=== PATIENT | male | born 1960 | race Caucasian/White ===

== ENCOUNTER 2016-09-02 14:18 | Outpatient (CLI) | payer MEDICAID | END 2016-09-02 14:19 | disposition home or self-care (01) | DX: E11.9 Type 2 diabetes mellitus without complications (principal); E78.1 Pure hyperglyceridemia; E66.9 Obesity, unspecified ==

== ENCOUNTER 2016-10-23 11:14 | Outpatient (CLI) | payer MEDICAID ==
--- NOTE | 2016-10-23 13:47 | Ultrasound Report ---
SCROTAL DUPLEX: 10/23/2016 CLINICAL INDICATION: Hydrocele. COMPARISON: 10/31/2014 TECHNIQUE: Real-time sonographic vascular imaging was performed by the chief dietitian through the scrot um utilizing both color-flow and Doppler spectral analysis. Multiple credit resolution representative static images we re saved for review. FINDINGS: The right testicle measures 5.1 x 3.4 x 2.9 cm, and the left testicle measures 5.6 x 3.4 x 3.0 cm. Both testicles demonstrate normal flow and echotexture. The epididymides are unremarkable. A left hydrocele is present, increased in size from previous. No varicocele or hernia is identifie d. IMPRESSION: INTERVAL INCREASE IN SIZE OF LEFT HYDROCELE. NO INTRATESTICULAR MASS. JOB #: [id number] EXT JOB #:
== END 2016-10-23 11:15 | disposition home or self-care (01) ==
LOC: DI 11:14
PROVIDERS: ATTEND Nurse Practitioner Family
DX: N43.3 Hydrocele, unspecified (principal)
CPT/HCPCS: 76870

== ENCOUNTER 2016-12-30 11:12 | Outpatient (CLI) | payer MEDICAID ==
[2016-12-30 20:10] LABS: HEMOGLOBIN A1C 0.94 g/dL
== END 2016-12-30 11:13 | disposition home or self-care (01) ==
LOC: LAB.S 11:12
PROVIDERS: ATTEND Nurse Practitioner Family
DX: E11.9 Type 2 diabetes mellitus without complications (principal)
CPT/HCPCS: 36415; 83036

== ENCOUNTER 2017-07-22 13:30 | Outpatient (CLI) | payer MEDICAID ==
--- NOTE | 2017-07-22 18:37 | XRAY Report ---
TWO VIEW LEFT KNEE: 07/22/2017 CLINICAL INDICATION: Pain. FINDINGS: Frontal and lateral views of the left knee demonstrate minimal osteoarthritis, with small marginal osteophytes. There is no evidence of acute fracture. No effusion is present. IMPRESSION: MINIMAL OSTEOARTHRITIS. TD: 07/22/2017 18:37
== END 2017-07-22 13:31 | disposition home or self-care (01) ==
LOC: DI.S 13:30
PROVIDERS: ATTEND Nurse Practitioner Family
DX: M17.12 Unilateral primary osteoarthritis, left knee (principal)

== ENCOUNTER 2017-09-08 08:00 | Outpatient (CLI) | payer MEDICAID ==
[2017-09-08 18:48] LABS: HB2 TOTAL 16.5 g/dL; HEMOGLOBIN A1C 1.23 g/dL
[2017-09-08 18:56] LABS: ALBUMIN 4.1 g/dL (3.2-5.5); ALBUMIN/GLOBULIN RATIO 1.4 (1.0-2.2); ALKALINE PHOSPHATASE 68 IU/L (42-121); ALT ALANINE AMINOTRANSFERASE 30 IU/L (10-60); AST ASPARTATE AMINOTRANSFERASE 19 IU/L (10-42); BILIRUBIN,TOTAL 0.8 mg/dL (0.2-1.0); BUN - BLOOD UREA NITROGEN 15 mg/dL (6-20); CARBON DIOXIDE - CO2 26 mmol/L (21-32); CHLORIDE 100 mmol/L (101-111); CHOL/HDL RATIO 5.6 (<5.0); CHOLESTEROL 201 mg/dL; CREATININE 0.6 mg/dL (0.6-1.2); GFR - MDRD 138 (>89); GLUCOSE 251 mg/dL (70-100); HDL CHOLESTEROL 36 mg/dL; LDL CHOLESTEROL,CALCULATED 134 mg/dL; LDL/HDL RATIO 3.7 (<3.6); SODIUM 134 mmol/L (135-145); VLDL CHOLESTEROL 31 mg/dL
== END 2017-09-08 08:01 | disposition home or self-care (01) ==
LOC: LAB.S 08:00
PROVIDERS: ATTEND Nurse Practitioner Family
DX: E11.9 Type 2 diabetes mellitus without complications (principal); I10 Essential (primary) hypertension
CPT/HCPCS: 36415; 80053; 80061; 82043; 83036; 83721; 84443

== ENCOUNTER 2018-07-31 11:13 | Outpatient (CLI) | payer MEDICAID ==
[2018-07-31 20:09] LABS: HB2 TOTAL 15.2 g/dL; HEMOGLOBIN A1C 1.21 g/dL; HEMOGLOBIN A1C % 9.4 % (4.6-6.2)
== END 2018-07-31 11:14 | disposition home or self-care (01) ==
LOC: LAB.F 11:13
PROVIDERS: ATTEND Nurse Practitioner Family
DX: E11.8 Type 2 diabetes mellitus with unspecified complications (principal)
CPT/HCPCS: 36415; 83036

== ENCOUNTER 2018-08-10 09:32 | Outpatient (CLI) | payer MEDICAID ==
[2018-08-10 17:55] LABS: BASOPHILS # (AUTO) 0.1 10^3/uL (0.0-0.1); BASOPHILS % (AUTO) 0.9 %; EOSINOPHILS # (AUTO) 0.2 10^3/uL (0.0-0.7); EOSINOPHILS % (AUTO) 2.1 %; HGB - HEMOGLOBIN 14.6 g/dL (14.0-18.0); LYMPHOCYTES # (AUTO) 1.9 10^3/uL (1.5-3.5); LYMPHOCYTES % (AUTO) 24.4 %; MEAN CORPUSCULAR HEMOGLOBIN 29.3 pg (27.0-31.0); MEAN CORPUSCULAR HGB CONC 33.6 g/dL (32.0-36.0); MEAN CORPUSCULAR VOLUME 87.3 fL (80.0-94.0); MEAN PLATELET VOLUME 8.7 fL (7.4-11.4); MONOCYTES # (AUTO) 0.6 10^3/uL (0.0-1.0); MONOCYTES % (AUTO) 7.5 %; NEUTROPHILS % (AUTO) 65.1 %; PLT - PLATELET COUNT 263 10^3/uL (130-450); RED BLOOD COUNT 4.98 10^6/uL (4.70-6.10); RED CELL DISTRIBUTION WIDTH 14.7 % (12.0-15.0); WHITE BLOOD COUNT 7.6 x10^3/uL (4.8-10.8)
[2018-08-10 18:17] LABS: ALBUMIN 3.9 g/dL (3.2-5.5); ALBUMIN/GLOBULIN RATIO 1.1 (1.0-2.2); ALKALINE PHOSPHATASE 77 IU/L (42-121); ALT ALANINE AMINOTRANSFERASE 32 IU/L (10-60); AST ASPARTATE AMINOTRANSFERASE 24 IU/L (10-42); BILIRUBIN,TOTAL 0.4 mg/dL (0.2-1.0); BUN - BLOOD UREA NITROGEN 12 mg/dL (6-20); CALCIUM 9.2 mg/dL (8.5-10.3); CARBON DIOXIDE - CO2 28 mmol/L (21-32); CHLORIDE 102 mmol/L (101-111); CHOL/HDL RATIO 4.6 (<5.0); CHOLESTEROL 193 mg/dL; CREATININE 0.6 mg/dL (0.6-1.2); GFR - MDRD 138 (>89); GLUCOSE 196 mg/dL (70-100); HDL CHOLESTEROL 42 mg/dL; LDL CHOLESTEROL,CALCULATED 106 mg/dL; LDL/HDL RATIO 2.5 (<3.6); SODIUM 138 mmol/L (135-145); TOTAL PROTEIN 7.3 g/dL (6.7-8.2); VLDL CHOLESTEROL 45 mg/dL
== END 2018-08-10 09:33 | disposition home or self-care (01) ==
LOC: LAB.F 09:32
PROVIDERS: ATTEND Nurse Practitioner Family
DX: I10 Essential (primary) hypertension (principal); E78.1 Pure hyperglyceridemia; E11.8 Type 2 diabetes mellitus with unspecified complications
CPT/HCPCS: 36415; 80053; 80061; 82043; 83721; 84443; 85025

== ENCOUNTER 2018-10-22 10:35 | Outpatient (CLI) | payer MEDICAID | END 2018-10-22 10:36 | disposition home or self-care (01) | LOC: SC 10:35 | PROVIDERS: ATTEND Nurse Practitioner Family | DX: G47.33 Obstructive sleep apnea (adult) (pediatric) (principal); E66.01 Morbid (severe) obesity due to excess calories; Z68.41 Body mass index [BMI] 40.0-44.9, adult | CPT/HCPCS: 99204; 99212 ==

== ENCOUNTER 2019-03-23 13:48 | Outpatient (CLI) | payer MEDICAID ==
[2019-03-23 17:42] LABS: CALCIUM 9.9 mg/dL (8.5-10.3); CREATININE 0.7 mg/dL (0.6-1.2)
[2019-03-23 18:03] LABS: CREATININE,URINE 143.3 mg/dL; MICROALBUM/CREATININE RATIO,UR 281.9 ug/mg (<30.0); MICROALBUMIN,URINE 40.4 mg/dL (0-300.0)
[2019-03-23 18:12] LABS: HB2 TOTAL 15.1 g/dL; HEMOGLOBIN A1C 1.4 g/dL; HEMOGLOBIN A1C % 10.6 % (4.6-6.2)
== END 2019-03-23 13:49 | disposition home or self-care (01) ==
LOC: LAB.S 13:48
PROVIDERS: ATTEND Registered Nurse
DX: E11.65 Type 2 diabetes mellitus with hyperglycemia (principal)
CPT/HCPCS: 36415; 80048; 82043; 82570; 83036

== ENCOUNTER 2020-09-29 10:36 | Outpatient (CLI) | payer MEDICAID ==
[2020-09-29 15:05] LABS: BASOPHILS # (AUTO) 0.1 10^3/uL (0.0-0.1); BASOPHILS % (AUTO) 0.8 %; EOSINOPHILS # (AUTO) 0.2 10^3/uL (0.0-0.7); EOSINOPHILS % (AUTO) 2.7 %; HCT - HEMATOCRIT 43.8 % (42.0-52.0); HGB - HEMOGLOBIN 14.8 g/dL (14.0-18.0); LYMPHOCYTES # (AUTO) 2.6 10^3/uL (1.5-3.5); LYMPHOCYTES % (AUTO) 29.6 %; MEAN CORPUSCULAR HEMOGLOBIN 29.8 pg (27.0-31.0); MEAN CORPUSCULAR HGB CONC 33.8 g/dL (32.0-36.0); MEAN CORPUSCULAR VOLUME 88.3 fL (80.0-94.0); MEAN PLATELET VOLUME 10.8 fL (7.4-11.4); MONOCYTES # (AUTO) 0.6 10^3/uL (0.0-1.0); MONOCYTES % (AUTO) 7.3 %; NEUTROPHILS # (AUTO) 5.1 10^3/uL (1.5-6.6); PLT - PLATELET COUNT 294 10^3/uL (130-450); RED BLOOD COUNT 4.96 10^6/uL (4.70-6.10); WHITE BLOOD COUNT 8.7 x10^3/uL (4.8-10.8)
[2020-09-29 15:40] LABS: ALBUMIN/GLOBULIN RATIO 1.3 (1.0-2.2); ALKALINE PHOSPHATASE 71 IU/L (42-121); ALT ALANINE AMINOTRANSFERASE 26 IU/L (10-60); AST ASPARTATE AMINOTRANSFERASE 14 IU/L (10-42); BILIRUBIN,TOTAL 0.9 mg/dL (0.2-1.0); BUN - BLOOD UREA NITROGEN 20 mg/dL (6-20); CALCIUM 9.2 mg/dL (8.5-10.3); CARBON DIOXIDE - CO2 27 mmol/L (21-32); CHLORIDE 101 mmol/L (101-111); CHOLESTEROL 127 mg/dL; CREATININE 0.6 mg/dL (0.6-1.2); GFR - MDRD 137 (>89); GLUCOSE 113 mg/dL (70-100); HDL CHOLESTEROL 43 mg/dL; LDL CHOLESTEROL,CALCULATED 67 mg/dL; LDL/HDL RATIO 1.6 (<3.6); POTASSIUM 3.8 mmol/L (3.5-5.0); SODIUM 138 mmol/L (135-145); TOTAL PROTEIN 7.2 g/dL (6.7-8.2); TRIGLYCERIDES 84 mg/dL; VLDL CHOLESTEROL 17 mg/dL
[2020-09-29 16:18] LABS: THYROID STIMULATING HORMONE 1.47 uIU/mL (0.34-5.60)
== END 2020-09-29 10:37 | disposition home or self-care (01) ==
LOC: LAB.S 10:36
PROVIDERS: ATTEND Registered Nurse
DX: E11.8 Type 2 diabetes mellitus with unspecified complications (principal); Z12.5 Encounter for screening for malignant neoplasm of prostate; F17.210 Nicotine dependence, cigarettes, uncomplicated; I10 Essential (primary) hypertension; G47.30 Sleep apnea, unspecified
CPT/HCPCS: 36415; 80053; 80061; 83721; 84153; 84443; 85025

== ENCOUNTER 2020-12-07 10:08 | Outpatient (CLI) | payer MEDICAID ==
[2020-12-07 15:09] LABS: CALCIUM 8.7 mg/dL (8.5-10.3); CREATININE 0.8 mg/dL (0.6-1.2); POTASSIUM 3.7 mmol/L (3.5-5.0)
[2020-12-07 15:41] LABS: CREATININE,URINE 100.7 mg/dL; MICROALBUM/CREATININE RATIO,UR 85.4 ug/mg (<30.0); MICROALBUMIN,URINE 8.6 mg/dL (0-300.0)
[2020-12-07 19:54] LABS: ESTIMATED AVERAGE GLUCOSE 163 mg/dL (70-100); HEMOGLOBIN A1c% 7.3 % (4.27-6.07)
== END 2020-12-07 10:09 | disposition home or self-care (01) ==
LOC: LAB.S 10:08
PROVIDERS: ATTEND Registered Nurse
DX: E11.8 Type 2 diabetes mellitus with unspecified complications (principal); I10 Essential (primary) hypertension
CPT/HCPCS: 36415; 80048; 82043; 82570; 83036

== ENCOUNTER 2021-02-12 14:09 | Outpatient (CLI) | payer MEDICAID | END 2021-02-12 14:10 | disposition home or self-care (01) | LOC: COV 14:09 | PROVIDERS: ATTEND Family Medicine | DX: U07.1 COVID-19 (principal) ==

== ENCOUNTER 2022-04-29 12:41 | Outpatient (CLI) | payer MEDICAID ==
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
[2022-04-29 21:12] VITALS: BP 132/80
== END 2022-04-29 12:42 | disposition home or self-care (01) ==
LOC: SC 12:41
PROVIDERS: ATTEND Internal Medicine Pulmonary Disease
DX: G47.33 Obstructive sleep apnea (adult) (pediatric) (principal); E66.01 Morbid (severe) obesity due to excess calories; Z68.41 Body mass index [BMI] 40.0-44.9, adult
CPT/HCPCS: 99202; 99212

== ENCOUNTER 2022-12-20 12:16 | Outpatient (CLI) | payer MEDICAID ==
[2022-12-20 14:50] LABS: BASOPHILS # (AUTO) 0.1 10^3/uL (0.0-0.1); BASOPHILS % (AUTO) 0.9 %; EOSINOPHILS # (AUTO) 0.2 10^3/uL (0.0-0.7); EOSINOPHILS % (AUTO) 2.3 %; HCT - HEMATOCRIT 45.4 % (42.0-52.0); HGB - HEMOGLOBIN 14.9 g/dL (14.0-18.0); MEAN CORPUSCULAR HEMOGLOBIN 30.2 pg (27.0-31.0); MEAN CORPUSCULAR HGB CONC 32.8 g/dL (32.0-36.0); MEAN CORPUSCULAR VOLUME 91.9 fL (80.0-94.0); MONOCYTES # (AUTO) 0.5 10^3/uL (0.0-1.0); MONOCYTES % (AUTO) 6.3 %; NEUTROPHILS # (AUTO) 5.1 10^3/uL (1.5-6.6); NEUTROPHILS % (AUTO) 65.1 %; PLT - PLATELET COUNT 261 10^3/uL (130-450); RED BLOOD COUNT 4.94 10^6/uL (4.70-6.10); RED CELL DISTRIBUTION WIDTH 14.1 % (12.0-15.0); WHITE BLOOD COUNT 7.8 x10^3/uL (4.8-10.8)
[2022-12-20 15:25] LABS: ALBUMIN 4.2 g/dL (3.2-5.5); ALBUMIN/GLOBULIN RATIO 1.7 (1.0-2.2); ALKALINE PHOSPHATASE 68 IU/L (42-121); ALT ALANINE AMINOTRANSFERASE 35 IU/L (10-60); AST ASPARTATE AMINOTRANSFERASE 15 IU/L (10-42); BILIRUBIN,TOTAL 0.5 mg/dL (0.2-1.0); BUN - BLOOD UREA NITROGEN 21 mg/dL (6-20); CALCIUM 9.6 mg/dL (8.5-10.3); CARBON DIOXIDE - CO2 27 mmol/L (21-32); CHLORIDE 107 mmol/L (101-111); CHOL/HDL RATIO 2.9 (<5.0); CHOLESTEROL 110 mg/dL; CREATININE 0.8 mg/dL (0.6-1.3); GFR - MDRD 98 (>89); GLUCOSE 139 mg/dL (74-104); HDL CHOLESTEROL 38 mg/dL; LDL CHOLESTEROL,CALCULATED 39 mg/dL; POTASSIUM 3.7 mmol/L (3.5-4.5); SODIUM 139 mmol/L (135-145); TOTAL PROTEIN 6.7 g/dL (6.4-8.9); TRIGLYCERIDES 164 mg/dL (48-352); VLDL CHOLESTEROL 33 mg/dL
[2022-12-20 15:26] LABS: CREATININE,URINE 117.2 mg/dL; MICROALBUM/CREATININE RATIO,UR 57.2 ug/mg (<30.0); MICROALBUMIN,URINE 6.7 mg/dL
[2022-12-20 15:42] LABS: ESTIMATED AVERAGE GLUCOSE 154 mg/dL (70-100)
== END 2022-12-20 12:17 | disposition home or self-care (01) ==
LOC: LAB.S 12:16
PROVIDERS: ATTEND Registered Nurse
DX: E78.1 Pure hyperglyceridemia (principal); Z79.899 Other long term (current) drug therapy; Z12.5 Encounter for screening for malignant neoplasm of prostate; E11.8 Type 2 diabetes mellitus with unspecified complications
CPT/HCPCS: 36415; 80053; 80061; 82043; 82570; 83036; 83721; 84153; 85025

== ENCOUNTER 2023-03-31 07:24 | Day surgery (SDC) | payer MEDICAID ==
[2023-03-31] MEDS ORDERED: BACITRACIN ZINC OINT 1 PACKET TOP ONE ×2 (07:29→08:23)
[2023-03-31] MEDS ORDERED: BUPIVACAINE 0.5%-EPI 1:200000 PF 30 ML VIAL ONE (07:30)
[2023-03-31] MEDS ORDERED: LIDOCAINE-MPF 1% 30 ML VIAL ONE ×2 (07:30→07:31)
[2023-03-31] MEDS ORDERED: LACTATED RINGERS 1,000 ML IV ONE (07:59)
[2023-03-31] MEDS ORDERED: MORPHINE 2 MG/ML CARPUJECT IVP PRN (08:03)
[2023-03-31] MEDS ORDERED: ATROPINE ABBOJECT 1 MG/10 ML SYRINGE IVP PRN (08:03)
[2023-03-31] MEDS ORDERED: fentaNYL 100 MCG/2 ML VIAL IVP PRN (08:03)
[2023-03-31] MEDS ORDERED: HYDROmorphone 0.5 MG/0.5 ML SYRINGE IVP PRN (08:03)
[2023-03-31] MEDS ORDERED: ePHEDrine 50 MG/ML VIAL IVP PRN (08:03)
[2023-03-31] MEDS ORDERED: NALOXONE 0.4 MG/ML VIAL IVP PRN (08:03)
[2023-03-31] MEDS ORDERED: ONDANSETRON 4 MG/2 ML VIAL IVP PRN ×2 (08:03→09:23)
[2023-03-31] MEDS ORDERED: METOCLOPRAMIDE 10 MG/2 ML VIAL IVP PRN (08:03)
--- NOTE | 2023-03-31 08:03 | ANESTHESIA ---
Pre-Anesthesia VS, & Labs - Diagnosis spermatocele - Procedure spermatocelectomy Vital Signs: Temp Pulse Resp BP Pulse Ox O2 Flow Rate 36.3 C L 100 12 140/82 H 96 03/31/23 07:44 03/31/23 07:44 03/31/23 07:44 03/31/23 07:44 03/31/23 07:44 Height: 6 ft 2 in Weight (kg): 152 kg Body Mass Index: 43.0 BMI Classification: Morbidly Obese - NPO >8 hours Home Medications and Allergies Home Medications: Ambulatory Orders Amlodipine Besylate [Norvasc] 10 mg PO DAILY 03/25/23 Atorvastatin Calcium 40 mg PO QPM 03/25/23 Dapagliflozin Propanediol [Farxiga] 10 mg PO QDBREAKFAST 03/25/[address] [Voltaren] 75 mg PO BIDWM 03/25/23 Glimepiride [Amaryl] 4 mg PO BID 03/25/23 Liraglutide [Victoza 2-Adam] 0.6 - 1.8 mg SQ DAILY 03/25/23 Losartan Potassium 100 mg PO DAILY 03/25/23 hydroCHLOROthiazide [Hydrodiuril] 25 mg PO DAILY 03/25/23 Active Medications Cefazolin Sodium 3 gm/ Sodium (Chloride) 50 mls @ 100 mls/hr IV ONCE ONE Stop: 03/31/23 08:59 Metformin HCl 1,000 mg PO BID 10/31/14 Amlodipine Besylate [Norvasc] 10 mg PO DAILY 03/25/23 Atorvastatin Calcium 40 mg PO QPM 03/25/23 Dapagliflozin Propanediol [Farxiga] 10 mg PO QDBREAKFAST 03/25/[address] [Voltaren] 75 mg PO BIDWM 03/25/23 Glimepiride [Amaryl] 4 mg PO BID 03/25/23 Liraglutide [Victoza 2-Adam] 0.6 - 1.8 mg SQ DAILY 03/25/23 Losartan Potassium 100 mg PO DAILY 03/25/23 hydroCHLOROthiazide [Hydrodiuril] 25 mg PO DAILY 03/25/23 Allergies/Adverse Reactions: Allergies Allergy/AdvReac Type Severity Reaction Status Date / Time No Known Drug Allergies Allergy Verified 02/18/23 12:28 Anes History & Medical History - Anesthetic History Anesthesia Complications: reports: No previous complications Family history of Anesthesia Complications: Denies Family history of Malignant Hyperthermia: Denies - Medical History Cardiovascular: reports: Hypertension, High cholesterol Pulmonary: reports: Sleep apnea, CPAP use Gastrointestinal: reports: None Urinary: reports: Kidney stones, Other Musculoskeletal: reports: None Endocrine/Autoimmune: reports: Type 2 diabetes Skin: reports: None Smoking Status: Current some day smoker Psychosocial: reports: Cannabis History of Cancer?: No Exam General: Alert, Oriented x3, Cooperative Dental: WNL Mouth Opening: Greater than 4 Fingerbreadths Neck Mobility: Normal Mallampati classification: II Thyromental Distance: 4-6 cm Respiratory: Lungs clear Cardiovascular: Regular rate Plan Anesthesia Type: General Consent for Procedure(s) Verified and Reviewed: Yes Code Status: Attempt Resuscitation ASA classification: 3-Severe systemic disease Is this case an emergency?: No
[2023-03-31] MEDS ORDERED: BUPIVACAINE 0.25% PF 30 ML VIAL SUBQ ONE ×2 (08:23)
[2023-03-31] MEDS ORDERED: LACTATED RINGERS 1,000 ML IV SCH (09:00)
[2023-03-31] MEDS ORDERED: fentaNYL 100 MCG/2 ML VIAL ONE ×2 (09:02→09:43)
[2023-03-31] MEDS ORDERED: MIDAZOLAM 2 MG/2 ML VIAL ONE (09:02)
[2023-03-31] MEDS ORDERED: PROPOFOL 200 MG/20 ML VIAL IVP ONE (09:03)
[2023-03-31] MEDS ORDERED: LACTATED RINGERS 300 ML IV ONE (09:17)
[2023-03-31] MEDS ORDERED: HYDROcod/ACETAM 10 MG/325 MG TABLET PO PRN (09:23)
[2023-03-31] MEDS ORDERED: DEXAMETHASONE 4 MG/ML VIAL ONE (09:34)
[2023-03-31] MEDS ORDERED: ONDANSETRON 4 MG/2 ML VIAL ONE (09:34)
--- NOTE | 2023-03-31 09:38 | Discharge Plan ---
Discharge Plan Problem Reviewed?: Yes Disposition: Home, Self Care Condition: Good Prescriptions: Docusate Sodium 100Mg Capsule [Colace 100Mg Capsule] 100 mg PO DAILY #10 cap cephALEXin [Keflex] 500 mg PO Q6H #28 cap HYDROcod/ACETAM 5/325 [Dovray 5/325] 1 tab PO Q4H PRN #12 tablet PRN Reason: Pain Diet: Diabetic Activity Restrictions: Additional Comments (no heavy lifting >8lbs for 2 weeks) Shower Restrictions: Yes (ok to shower tomorrow. No bathing until one week after drain removed) Driving Restrictions: No Instruction Topics: Hydrocelectomy Surg Additional Instructions or Follow Up instructions: You have a drain in place. This will have bloody or clear/yellow fluid come from it. This is normal. Discard soiled gauze as needed. No Smoking: If you smoke, Please STOP! Call for help. Follow-up with: Clarisa Marti ARNP [Primary Care Provider] - Edward Velez MD [Provider Admit Priv/Credential] -
--- NOTE | 2023-03-31 09:45 | OPERATIVE REPORT ---
Operative Report - General Procedure Date: 03/31/23 Planned Procedure: Left spermatocelectomy Pre-Op Diagnosis: left spermatocele Procedure Performed: Left hydrocelectomy Post Op Diagnosis: Left hydrocele - Procedure Note Primary Surgeon: Agustin Anesthesia Provider: ALEX Anesthesia Technique: General LMA Pathology: left hydrocele sac Estimated Blood Loss (mL): 10 Drain/Tube Type: [place] (left dependent scrotum) Findings: Large left hydrocele, at least 500cc drained Complications: none - Other Other Information/Narrative: After informed consent was obtained the patient was brought to the OR and laid in the supine position. At that point time the patient was anesthetized per anesthesia protocols. He was prepped and draped in the usual sterile fashion. A timeout was performed reconfirming the patient, procedure and laterality. He had a large swelling of his left hemiscrotum. 0.75% bupivacaine was used as local. This was instilled into the scrotum in the midline raphae. Using electrocautery this was cut down to open the skin. The dark toes on the left was then opened using electrocautery. Using blunt dissection we were able to get around his tunica vaginalis. Initially we thought that this was a large spermatocele and so the entire tunica vaginalis was delivered through his scrotal incision. At that point we could see that th is appeared to be actually a large hydrocele. A stab incision was used to open up the hydrocele sac and at least 500 cc of straw-colored effluent was removed. We then delivered the testicle through this incision and we could see that there was no spermatocele and there was a normal epididymis. The redundant hydrocele sac was excised. The edges were cauterized for hemostasis. The edges were then ran with locking 3-0 Vicryl suture. The hemiscrotum was irrigated copiously with saline. There was no significant oozing or bleeding. A spermatic cord block was given. A stab incision was made in the dependent left hemiscrotum and a [place] drain was placed through this. This was sutured in place using a 3-0 nylon suture. The dark toes was closed using a running 3-0 Vicryl suture. The skin was closed using a running 3-0 chromic suture and then covered with skin glue. Fluffs and a scrotal support were placed. This concluded the procedure the patient was reversed from anesthesia and brought to the PACU without further incident. All surgical counts were correct. The patient will have the drain in place until later this week or early next week.
[2023-03-31] MEDS ORDERED: HYDROcod/ACETAM 10 MG/325 MG TABLET ONE (10:12)
[2023-03-31 10:18] VITALS: O2SAT 94
[2023-03-31 10:37] VITALS: BP 132/98
--- NOTE | 2023-03-31 12:16 | ANESTHESIA POST OP EVALUATION ---
Anesthesia Post Eval - Post Anesthesia Eval Vitals: Last Vital Signs Temp 36.5 C 03/31/23 10:26 Pulse 126 H 03/31/23 10:26 Resp 18 03/31/23 10:26 BP 132/98 H 03/31/23 10:26 Pulse Ox 94 03/31/23 10:26 O2 Flow Rate CV Function Including HR & BP: Stable Pain Control: Satisfactory Nausea & Vomiting: Negative Mental Status: Baseline Respiratory Status: Airway Patent Hydration Status: Satisfactory Anesthesia Complications: None
== END 2023-03-31 07:25 | disposition home or self-care (01) ==
LOC: SDS 07:24
PROVIDERS: ATTEND Urology
PROC: 0VB Male Reproductive System, Excision (ICD-10-PCS; principal; 2023-03-31 08:30)
DX: N43.3 Hydrocele, unspecified (principal); E11.9 Type 2 diabetes mellitus without complications; I10 Essential (primary) hypertension; G47.30 Sleep apnea, unspecified; E66.01 Morbid (severe) obesity due to excess calories; Z68.41 Body mass index [BMI] 40.0-44.9, adult; Z79.84 Long term (current) use of oral hypoglycemic drugs
CPT/HCPCS: 55040; A9270; J7040; J7120

== ENCOUNTER 2023-07-23 15:35 | Outpatient (CLI) | payer MEDICAID ==
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
== END 2023-07-23 15:36 | disposition home or self-care (01) ==
LOC: SC 15:35
PROVIDERS: ATTEND Nurse Practitioner Family
DX: G47.33 Obstructive sleep apnea (adult) (pediatric) (principal); E66.01 Morbid (severe) obesity due to excess calories; Z68.42 Body mass index [BMI] 45.0-49.9, adult

== ENCOUNTER 2023-07-25 07:33 | Day surgery (SDC) | payer MEDICAID ==
--- NOTE | 2023-07-25 07:11 | ANESTHESIA ---
Pre-Anesthesia VS, & Labs - Diagnosis screening - Procedure colonoscopy Height: 6 ft 2 in - NPO >8 hours Last Fluid Intake: am prep - Lab Results Lab results reviewed: Yes Home Medications and Allergies Metformin HCl 1,000 mg PO BID 10/31/14 Amlodipine Besylate [Norvasc] 10 mg PO DAILY 03/25/23 Atorvastatin Calcium 40 mg PO QPM 03/25/23 Dapagliflozin Propanediol [Farxiga] 10 mg PO QDBREAKFAST 03/25/[address] [Voltaren] 75 mg PO BIDWM 03/25/23 Glimepiride [Amaryl] 4 mg PO BID 03/25/23 Liraglutide [Victoza 2-Adam] 0.6 - 1.8 mg SQ DAILY 03/25/23 Losartan Potassium 100 mg PO DAILY 03/25/23 hydroCHLOROthiazide [Hydrodiuril] 25 mg PO DAILY 03/25/23 Allergies/Adverse Reactions: Allergies Allergy/AdvReac Type Severity Reaction Status Date / Time No Known Drug Allergies Allergy Verified 07/23/23 14:51 Anes History & Medical History - Anesthetic History Anesthesia Complications: reports: No previous complications Family history of Anesthesia Complications: Denies Family history of Malignant Hyperthermia: Denies - Medical History Cardiovascular: reports: Hypertension, High cholesterol Pulmonary: reports: Sleep apnea, CPAP use Gastrointestinal: reports: None Urinary: reports: Kidney stones, Other Musculoskeletal: reports: None Endocrine/Autoimmune: reports: Type 2 diabetes Skin: reports: None Smoking Status: Current some day smoker - Surgical History Urologic: reports: Testicular surgery Exam General: Oriented x3, Cooperative Dental: WNL Mouth Openin Fingerbreadth Neck Mobility: Normal Mallampati classification: II Respiratory: Lungs clear, Normal breath sounds, No respiratory distress Cardiovascular: Regular rate Neurological: Normal speech Mental/Cognitive Status: Alert/Oriented X3 Cognitive Status: Within normal limits Plan Anesthesia Type: Total IV Consent for Procedure(s) Verified and Reviewed: Yes Code Status: Attempt Resuscitation ASA classification: 3-Severe systemic disease Is this case an emergency?: No
[~2023-07-25 07:33] MED LIST: PROPOFOL 500 MG/50 ML 500 MG/50 ML VIAL ONE
[2023-07-25] MEDS: LACTATED RINGERS 1,000 ML IV ONE ×2 (07:35→09:26)
[2023-07-25] MEDS ORDERED: ePHEDrine 50 MG/ML VIAL IVP ONE (07:51)
[2023-07-25] MEDS ORDERED: PROPOFOL 200 MG/20 ML VIAL IVP ONE (07:59)
[2023-07-25] MEDS ORDERED: MIDAZOLAM 2 MG/2 ML VIAL ONE (08:34)
--- NOTE | 2023-07-25 08:44 | HISTORY & PHYSICAL EXAMINATION ---
Chief Complaint - Chief Complaint Chief Complaint: here for colonscopy History of Present Illness - History Obtained From Records Reviewed: yes History obtained from: pt Exam Limitations: none - History of Present Illness HPI Comment/Other: here for colonoscopy for screening. no gi problems History - Past Medical History Cardiovascular: reports: Hypertension, High cholesterol Respiratory: reports: Sleep apnea, CPAP use Endocrine/Autoimmune: reports: Type 2 diabetes GI: reports: None : reports: Kidney stones, Other HEENT: reports: Chronic vision loss Psych: reports: None Musculoskeletal: reports: None Derm: reports: None MRSA Hx?: No - POLST Patient has POLST: No Meds/Allgy - Home Medications Home Medications: Ambulatory Orders Medication Instructions Recorded Confirmed Metformin HCl 1,000 mg PO BID 10/31/14 07/25/23 Amlodipine Besylate [Norvasc] 10 mg PO DAILY 03/25/23 07/25/23 Atorvastatin Calcium 40 mg PO QPM 03/25/23 07/25/23 Dapagliflozin Propanediol [Farxiga] 10 mg PO QDBREAKFAST 03/25/23 07/25/[address] [Voltaren] 75 mg PO BIDWM 03/25/23 07/25/23 Glimepiride [Amaryl] 4 mg PO BID 03/25/23 07/25/23 Liraglutide [Victoza 2-Adam] 0.6 - 1.8 mg SQ DAILY 03/25/23 07/25/23 Losartan Potassium 100 mg PO DAILY 03/25/23 07/25/23 hydroCHLOROthiazide [Hydrodiuril] 25 mg PO DAILY 03/25/23 07/25/23 - Allergies Allergies/Adverse Reactions: Allergies Allergy/AdvReac Type Severity Reaction Status Date / Time No Known Drug Allergies Allergy Verified 07/23/23 14:51 Review of Systems - Other Findings Other Findings: 10 pt ros as above otherwise unremarkable Exam - Vital Signs Vital Signs: Vital Signs x48h Temp Pulse Resp BP Pulse Ox 07/25/23 07:35 36.3 C L 88 23 137/98 H 98 - Physical Exam General Appearance: positive: Alert, Mild distress Eyes Bilateral: positive: PERRL, EOMI ENT: positive: No signs of dehydration Neck: positive: No JVD Respiratory: positive: No respiratory distress Cardiovascular: positive: Regular rate & rhythm Abdomen: positive: Non-tender, No distention Neurologic/Psychiatric: positive: Oriented x3 Conclusion/Plan - Problem List (1) Colon cancer screening Conclusion/Plan: plan colonoscopy. parq held and consent obtained - Lab Results Lab results reviewed: Yes
[2023-07-25] MEDS ORDERED: LIDOCAINE-MPF 2% 5 ML VIAL ONE (08:56)
[2023-07-25] MEDS ORDERED: METOPROLOL 5 MG/5 ML VIAL IVP ONE (09:08)
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
[2023-07-25 10:11] VITALS: BP 120/88; O2SAT 96
== END 2023-07-25 07:34 | disposition home or self-care (01) ==
LOC: SDS 07:33
PROVIDERS: ATTEND Surgery
PROC: 0DBN8ZZ Excision of Sigmoid Colon, Via Natural or Artificial Opening Endoscopic (ICD-10-PCS; 2023-07-25)
PROC: 0DBP8ZZ Excision of Rectum, Via Natural or Artificial Opening Endoscopic (ICD-10-PCS; 2023-07-25)
PROC: 0DBK8ZZ Excision of Ascending Colon, Via Natural or Artificial Opening Endoscopic (ICD-10-PCS; principal; 2023-07-25 08:45)
DX: Z12.11 Encounter for screening for malignant neoplasm of colon (principal); D12.2 Benign neoplasm of ascending colon; K62.1 Rectal polyp; K63.5 Polyp of colon; E11.9 Type 2 diabetes mellitus without complications; I48.91 Unspecified atrial fibrillation; I10 Essential (primary) hypertension; Z79.85 Long-term (current) use of injectable non-insulin antidiabetic drugs; Z79.84 Long term (current) use of oral hypoglycemic drugs; F17.200 Nicotine dependence, unspecified, uncomplicated; G47.30 Sleep apnea, unspecified
CPT/HCPCS: 36415; 45380; 71045; 80053; 83690; 83735; 85025; 93005; 96365; 99284; A9270; J7120; 84484

== ENCOUNTER 2023-07-25 10:22 | Emergency (ER) | payer MEDICAID ==
--- NOTE | 2023-07-25 10:43 | ED Physician Documentation ---
PD HPI DYSPNEA - Stated complaint Stated Complaint: AFIB - Chief complaint Chief Complaint: Cardiac - History obtained from History obtained from: Patient - History of Present Illness Timing - onset: Unknown (Patient had coonoscopy today here and at end of the procedure was noted to go into fast heart rate of about 150-160, appearing irregular. Given Metoprolol IV with slowing of heart rate. Initial rhythm strips in retrospect in preop were apparently atrial fib rate controlled. Pt wihtout chest pain.) Timing - details: Waxing and waning (initial heart rate into preop was good 80s. It was at end of the colonoscopy that HR abruptly went to 160s. BP remained good.) Inciting event(s): Other (patient preppped for colonoscopy the past few days.) Associated symptoms: No: Fever, Cough, Wheezing, Chest pain / discomfort Similar symptoms before: Has not had sx before (patient is not aware of irregula r heart rate in the past. Does not feel fast heart rate nor palpatations recently.) Review of Systems Constitutional: denies: Fever (not currently. Pt states had URI/COVID several weeks ago without continued symptoms.), Chills Nose: denies: Rhinorrhea / runny nose, Congestion Cardiac: denies: Chest pain / pressure, Palpitations, Pedal edema Respiratory: denies: Dyspnea, Cough GI: denies: Vomiting PD PAST MEDICAL HISTORY - Past Medical History Cardiovascular: Hypertension, High cholesterol Respiratory: Sleep apnea, CPAP use Endocrine/Autoimmune: Type 2 diabetes GI: None : Kidney stones, Other HEENT: Chronic vision loss Psych: None Musculoskeletal: None Derm: None - Past Surgical History Past Surgical History: No - Present Medications Home Medications: Ambulatory Orders Medication Instructions Recorded Confirmed Metformin HCl 1,000 mg PO BID 10/31/14 07/25/23 Amlodipine Besylate [Norvasc] 10 mg PO DAILY 03/25/23 07/25/23 Atorvastatin Calcium 40 mg PO QPM 03/25/23 07/25/23 Dapagliflozin Propanediol [Farxiga] 10 mg PO QDBREAKFAST 03/25/23 07/25/[address] [Voltaren] 75 mg PO BIDWM 03/25/23 07/25/23 Glimepiride [Amaryl] 4 mg PO BID 03/25/23 07/25/23 Liraglutide [Victoza 2-Adam] 0.6 - 1.8 mg SQ DAILY 03/25/23 07/25/23 Losartan Potassium 100 mg PO DAILY 03/25/23 07/25/23 hydroCHLOROthiazide [Hydrodiuril] 25 mg PO DAILY 03/25/23 07/25/23 Magnesium Oxide [Mag Ox] 400 mg PO DAILY #30 tablet 07/25/23 Metoprolol Tartrate [Lopressor] 25 mg PO DAILY #30 tablet 07/25/23 Potassium Chloride 10 meq PO DAILY #30 tab 07/25/23 - Allergies Allergies/Adverse Reactions: Allergies Allergy/AdvReac Type Severity Reaction Status Date / Time crab innards Allergy Edema Uncoded 07/25/23 10:40 shellfish innards Allergy Edema Uncoded 07/25/23 10:40 - Social History Does the pt smoke?: Yes Smoking Status: Current every day smoker Does the pt drink ETOH?: Yes Does the pt have substance abuse?: No - POLST Patient has POLST: No PD ED PE NORMAL - Vitals Vital signs reviewed: Yes - General General: Alert and oriented X 3, No acute distress, Well developed/nourished - Neck Neck: Supple, no meningeal sign, No adenopathy - Cardiac Cardiac: No murmur, Other (irregular heart rhythm with rate in 70-80s.) - Respiratory Respiratory: No respiratory distress, Clear bilaterally - Abdomen Abdomen: Soft, Non tender - Derm Derm: Normal color, Warm and dry - Extremities Extremities: No tenderness to palpate, Normal ROM s pain, No edema, No calf tenderness / cord - Neuro Neuro: Alert and oriented X 3, No motor deficit, Normal speech Results - Vitals Vitals: Vital Signs - 24 hr 07/25/23 07/25/23 10:33 12:39 Temperature 36.1 C L Heart Rate 71 75 Respiratory 15 16 Rate Blood Pressure 151/107 H 141/84 H O2 Saturation 98 96 Oxygen O2 Source Room air - EKG (time done) 10:23 EKG releavant findings:: EKG personally interpreted by author of this note. Relevant findings are: Rate: Rate (enter#) (71) Rhythm: Atrial fibrillation [place]: Normal Intervals: Wide QRS Ischemia: Normal ST segments. No: ST elevation c/w ischemia, ST depression Compare to prior EKG: Old EKG unavailable - Labs Labs: Laboratory Tests 07/25/23 07/25/23 10:51 10:51 WBC 8.4 RBC 5.45 Hgb 15.7 Hct 48.4 MCV 88.8 MCH 28.8 MCHC 32.4 RDW 14.1 Plt Count 285 MPV 10.6 Neut # (Auto) 6.0 Lymph # (Auto) 1.6 [place] # (Auto) 0.5 Eos # (Auto) 0.1 Baso # (Auto) 0.1 Absolute Nucleated RBC 0.00 Nucleated RBC % 0.0 Sodium 138 Potassium 3.7 Chloride 104 Carbon Dioxide 28 Anion Gap 6.0 BUN 13 Creatinine 0.7 Estimated GFR (MDRD) 114 Glucose 249 H Calcium 9.1 Magnesium 1.5 L Total Bilirubin 0.5 AST 16 ALT 30 Alkaline Phosphatase 79 Total Protein 6.3 L Albumin 3.6 Globulin 2.7 Albumin/Globulin Ratio 1.3 Lipase 16 - Rads (name of study) chest xray Relevant Findings:: Prelim report reviewed, EMP independent interpretation of test (mild interstitial edema) PD Medical Decision Making - ED course Complexity details: considered differential (review of rhythm strips for preop today showed atrial fib. Unknown duration of the rhythm. Did go to fast rate during colonscopy but was not new onset at that time per se. Given unknown duration/onset, the goal right now is rate control, which was gotten with dose metoprolol. He may have paroxysm.), d/w patient ED course: his atrial fib may be more recent fro hydration and lytes off with current colonoscpy prep. However, not known. Could be some viral myopathy from recent URI. Does not have other symptoms to suggest severe CHF. He might want to be on DOAC, depends if this is isolated episode related to current conditions Will want rhythm check in next few days follow up. Presume will want to have ECHO and Ziopatch, that can be done outpt, to see if any atril fib in the background that he does not feel. For now, can defer starting DOAC until more clear about it. He is stable for discharge. Departure - Departure Disposition: 01 Home, Self Care Clinical Impression: Atrial fibrillation Qualifiers: Atrial fibrillation type: unspecified Qualified Code(s): I48.91 - Unspecified atrial fibrillation Condition: Stable Record reviewed to determine appropriate education?: Yes Instructions: Atrial Fibrillation Dc Follow-Up: Clarisa Marti ARNP [Primary Care Provider] - Prescriptions: Metoprolol Tartrate [Lopressor] 25 mg PO DAILY #30 tablet Magnesium Oxide [Mag Ox] 400 mg PO DAILY #30 tablet Potassium Chloride 10 meq PO DAILY #30 tab Comments: You are in atrial fibrillation today and your heart rate did go past/[id number] during the colonoscopy. It seems to be in a better rate now after a dose of a medication called metoprolol. I would suggest continuing with the metoprolol at a low dose of 25 mg daily at least until follow-up with your primary care next week. On blood testing your electrolytes of potassium and magnesium were slightly low so I wrote supplements for these. Take them daily for at least the next week or 2. Stay well-hydrated otherwise and continue your other usual medicines. I did review your other medicines from your med list and there would not be any interactions with the metoprolol. This may be a 1 off episode related to prepping for the colonoscopy and hydration level and electrolyte shifts. It is not clear how long it had been that way prior to your scope today. I would suggest a baby aspirin daily. With your follow-up appointment next week with your primary care, they will want to do an EKG and see your rhythm. They likely will want to set you up with a wearable heart monitor that records your rhythm for 1 to 2 weeks to see if there is recurring episodes of atrial fibrillation in the background that you are not aware of. If you are still in A-fib next week, they will need to decide different course of action. I am inclined to think most likely your rhythm will convert to normal in the next couple of days. I sent your prescription to [facility] in [place]. Forms: PCP List Discharge Date/Time: 07/25/23 13:16
--- NOTE | 2023-07-25 11:01 | XRAY Report ---
PROCEDURE: Chest 1V INDICATIONS: Chest pain TECHNIQUE: One view of the chest was acquired. COMPARISON: 08/16/2015. FINDINGS: Surgical changes and devices: None. Lungs and pleura: No pleural effusions or pneumothorax. Mild interstitial pulmonary edema. Mediastinum: Mediastinal contours appear normal. Heart size is normal. Bones and chest wall: No suspicious bony lesions. Overlying soft tissues appear unremarkable. IMPRESSION: Mild interstitial pulmonary edema. Reviewed by: Ignacio Julien MD on 07/25/2023 11:00 AM [facility] Approved by: Ignacio Julien MD on 07/25/2023 11:00 AM PST Station ID: [id number]
[2023-07-25 11:03] LABS: BASOPHILS # (AUTO) 0.1 10^3/uL (0.0-0.1); BASOPHILS % (AUTO) 0.7 %; EOSINOPHILS # (AUTO) 0.1 10^3/uL (0.0-0.7); EOSINOPHILS % (AUTO) 1.2 %; HCT - HEMATOCRIT 48.4 % (42.0-52.0); HGB - HEMOGLOBIN 15.7 g/dL (14.0-18.0); LYMPHOCYTES # (AUTO) 1.6 10^3/uL (1.5-3.5); LYMPHOCYTES % (AUTO) 19.6 %; MEAN CORPUSCULAR HEMOGLOBIN 28.8 pg (27.0-31.0); MEAN CORPUSCULAR HGB CONC 32.4 g/dL (32.0-36.0); MEAN CORPUSCULAR VOLUME 88.8 fL (80.0-94.0); MEAN PLATELET VOLUME 10.6 fL (7.4-11.4); MONOCYTES # (AUTO) 0.5 10^3/uL (0.0-1.0); MONOCYTES % (AUTO) 5.6 %; NEUTROPHILS % (AUTO) 72.2 %; PLT - PLATELET COUNT 285 10^3/uL (130-450); RED BLOOD COUNT 5.45 10^6/uL (4.70-6.10); RED CELL DISTRIBUTION WIDTH 14.1 % (12.0-15.0); WHITE BLOOD COUNT 8.4 x10^3/uL (4.8-10.8)
[2023-07-25 11:19] LABS: ALBUMIN 3.6 g/dL (3.2-5.5); ALBUMIN/GLOBULIN RATIO 1.3 (1.0-2.2); BILIRUBIN,TOTAL 0.5 mg/dL (0.2-1.0); CALCIUM 9.1 mg/dL (8.5-10.3); CREATININE 0.7 mg/dL (0.6-1.3); MAGNESIUM 1.5 mg/dL (1.7-2.3); POTASSIUM 3.7 mmol/L (3.5-4.5); TOTAL PROTEIN 6.3 g/dL (6.4-8.9)
[2023-07-25] MEDS: METOPROLOL TARTRATE 25 MG TABLET PO STA (12:14)
[2023-07-25] MEDS: POTASSIUM BICARB 25 MEQ TABLET PO STA (12:14)
[2023-07-25] MEDS: SODIUM CHLORIDE 0.9% 500 ML IV STA (12:17)
[2023-07-25] MEDS: MAGNESIUM SULFATE 2 GRAM 2 GM/50 ML BAG IV ONE (12:18)
[2023-07-25 12:47] VITALS: BP 141/84; O2SAT 96
== END 2023-07-25 13:16 | disposition home or self-care (01) ==
LOC: ED 10:22
DX: I48.91 Unspecified atrial fibrillation (principal); E11.9 Type 2 diabetes mellitus without complications; Z79.85 Long-term (current) use of injectable non-insulin antidiabetic drugs; Z79.84 Long term (current) use of oral hypoglycemic drugs; F17.200 Nicotine dependence, unspecified, uncomplicated
CPT/HCPCS: 36415; 80053; 83690; 83735; 84484; 85025; 93005

== ENCOUNTER 2023-07-31 09:26 | Outpatient (CLI) | payer MEDICAID ==
[2023-07-31 14:40] LABS: ESTIMATED AVERAGE GLUCOSE 183 mg/dL (70-100)
[2023-07-31 15:15] LABS: THYROID STIMULATING HORMONE 2.52 uIU/mL (0.34-5.60)
[2023-07-31 15:42] LABS: ALBUMIN 4.2 g/dL (3.2-5.5); ALBUMIN/GLOBULIN RATIO 1.5 (1.0-2.2); ALKALINE PHOSPHATASE 85 IU/L (42-121); ALT ALANINE AMINOTRANSFERASE 46 IU/L (10-60); AST ASPARTATE AMINOTRANSFERASE 19 IU/L (10-42); BILIRUBIN,TOTAL 0.9 mg/dL (0.2-1.0); BUN - BLOOD UREA NITROGEN 17 mg/dL (6-20); CALCIUM 9.9 mg/dL (8.5-10.3); CARBON DIOXIDE - CO2 28 mmol/L (21-32); CHLORIDE 101 mmol/L (101-111); CHOL/HDL RATIO 2.9 (<5.0); CHOLESTEROL 123 mg/dL; CREATININE 0.8 mg/dL (0.6-1.3); GFR - MDRD 97 (>89); GLUCOSE 112 mg/dL (74-104); HDL CHOLESTEROL 43 mg/dL; LDL CHOLESTEROL,CALCULATED 51 mg/dL; LDL/HDL RATIO 1.2 (<3.6); MAGNESIUM 1.6 mg/dL (1.7-2.3); POTASSIUM 3.8 mmol/L (3.5-4.5); SODIUM 137 mmol/L (135-145); TRIGLYCERIDES 146 mg/dL (48-352); VLDL CHOLESTEROL 29 mg/dL
== END 2023-07-31 09:27 | disposition home or self-care (01) ==
LOC: LAB.S 09:26
PROVIDERS: ATTEND Internal Medicine
DX: I48.91 Unspecified atrial fibrillation (principal); E11.9 Type 2 diabetes mellitus without complications
CPT/HCPCS: 36415; 80048; 80053; 80061; 83036; 83721; 83735; 84443

== ENCOUNTER 2023-10-30 13:02 | Outpatient (CLI) | payer MEDICAID ==
[2023-10-30 15:10] LABS: CALCIUM 9.9 mg/dL (8.5-10.3); POTASSIUM 3.9 mmol/L (3.5-4.5)
[2023-10-30 19:58] LABS: ESTIMATED AVERAGE GLUCOSE 189 mg/dL (70-100); HEMOGLOBIN A1c% 8.2 % (4.27-6.07)
== END 2023-10-30 13:03 | disposition home or self-care (01) ==
LOC: LAB.S 13:02
PROVIDERS: ATTEND Registered Nurse
DX: E11.9 Type 2 diabetes mellitus without complications (principal)
CPT/HCPCS: 36415; 80048; 83036

== ENCOUNTER 2024-01-19 09:41 | Outpatient (CLI) | payer MEDICARE ==
[2024-01-19 15:37] LABS: BASOPHILS # (AUTO) 0.1 10^3/uL (0.0-0.1); BASOPHILS % (AUTO) 1.1 %; EOSINOPHILS # (AUTO) 0.2 10^3/uL (0.0-0.7); EOSINOPHILS % (AUTO) 1.8 %; HGB - HEMOGLOBIN 16.4 g/dL (14.0-18.0); LYMPHOCYTES % (AUTO) 24.4 %; MEAN CORPUSCULAR HEMOGLOBIN 29.6 pg (27.0-31.0); MEAN CORPUSCULAR HGB CONC 32.8 g/dL (32.0-36.0); MEAN CORPUSCULAR VOLUME 90.3 fL (80.0-94.0); MEAN PLATELET VOLUME 10.7 fL (7.4-11.4); MONOCYTES # (AUTO) 0.6 10^3/uL (0.0-1.0); MONOCYTES % (AUTO) 6.8 %; NEUTROPHILS # (AUTO) 5.5 10^3/uL (1.5-6.6); NEUTROPHILS % (AUTO) 65.3 %; PLT - PLATELET COUNT 257 10^3/uL (130-450); RED BLOOD COUNT 5.54 10^6/uL (4.70-6.10); WHITE BLOOD COUNT 8.4 x10^3/uL (4.8-10.8)
[2024-01-19 16:39] LABS: THYROID STIMULATING HORMONE 1.93 uIU/mL (0.34-5.60)
[2024-01-19 16:42] LABS: CHOL/HDL RATIO 2.7 (<5.0); CHOLESTEROL 118 mg/dL; HDL CHOLESTEROL 44 mg/dL; LDL CHOLESTEROL,CALCULATED 49 mg/dL; LDL/HDL RATIO 1.1 (<3.6); TRIGLYCERIDES 127 mg/dL; VLDL CHOLESTEROL 25 mg/dL
[2024-01-19 16:45] LABS: CREATININE,URINE 72.1 mg/dL; MICROALBUM/CREATININE RATIO,UR 84.6 ug/mg (<30.0); MICROALBUMIN,URINE 6.1 mg/dL
[2024-01-19 17:43] LABS: ESTIMATED AVERAGE GLUCOSE 174 mg/dL (70-100); HEMOGLOBIN A1c% 7.7 % (4.27-6.07)
== END 2024-01-19 09:42 | disposition home or self-care (01) ==
LOC: LAB.S 09:41
PROVIDERS: ATTEND Registered Nurse
DX: E11.9 Type 2 diabetes mellitus without complications (principal); Z12.5 Encounter for screening for malignant neoplasm of prostate; Z13.220 Encounter for screening for lipoid disorders; Z13.29 Encounter for screening for other suspected endocrine disorder; Z13.0 Encounter for screening for diseases of the blood and blood-forming organs and certain disorders involving the immune mechanism
CPT/HCPCS: 36415; 80061; 82043; 82570; 83036; 84443; 85025; G0103; 83721; 84153